=== PATIENT | male | born 1970 | race Caucasian/White ===

== ENCOUNTER 2022-01-30 19:31 | Emergency (ER) | payer MEDICARE, OTHER, SELFPAY ==
--- NOTE | 2022-01-30 19:26 | ECG_ITS ---
APPROVED REPORT Exam: Resting ECG HR:64 bpm ECG Measurements Heart Rate 64 AXES [place] 203 P 39 QRSd 116 QRS -7 QT 409 T 47 QTc 418 Conclusion SINUS RHYTHM INCOMPLETE RIGHT BUNDLE BRANCH BLOCK [90+ ms QRS DURATION, TERMINAL R IN V1/V2, 40+ ms S IN I/aVL/V4/V5/V6] POSSIBLE LATERAL MYOCARDIAL INFARCTION , OF INDETERMINATE AGE [30 ms Q WAVE IN I/aVL/V5/V6] ABNORMAL ECG UNCONFIRMED REPORT Electronically signed by : Flex Mckeon MD 01/31/2022 21:33:37
[2022-01-30 19:31] VITALS: BP 116/69; PULSE 67; RESP 16; TEMP 37.2; O2SAT 95; BMI 28.8
[2022-01-30 20:08] LABS: Acetaminophen < 10 ug/ml (10-30); Alanine Aminotransferase 47 U/L (12-78); Albumin Level 3.8 g/dl (3.5-5.0); Albumin/Globulin Ratio 1.4 (1.1-1.8); Alkaline Phosphatase 233 U/L (38-126); Anion Gap 8.1 mEq/L (5-15); Aspartate Amino Transferase 30 U/L (17-59); Bilirubin,Total 0.4 mg/dl (0.2-1.3); Blood Urea Nitrogen 11 mg/dl (9-20); Calcium 9.5 mg/dl (8.4-10.2); Carbon Dioxide 28 mmol/L (22.0-30.0); Chloride 105 mmol/L (98-107); Creatinine Clearance Estimated 75 mL/min (50-200); Estimated Glomerular Filt Rate 50 ml/min (>60); Ethyl Alcohol < 10 mg/dl (0-10); GFR (African American) 60 ML/MIN (>60); Globulin 2.7 g/dL (1.3-3.2); Glucose 108 mg/dl (74-100); Potassium 4.1 mmoL/L (3.5-5.1); Sodium 137 mmol/L (136-145); Total Protein,Serum 6.5 g/dl (6.3-8.2)
[2022-01-30 20:09] LABS: Microscopic, Urine URINE MICROSCOPIC (MICROSCOPIC)
[2022-01-30 20:13] LABS: Basophils % 0.6 % (0.1-2.0); Eosinophils # 0.1 K/mm3 (0.0-0.4); Eosinophils % 1.4 % (0.1-12.0); Hematocrit 37.2 % (42.0-52.0); Hemoglobin 11.8 g/dL (14.1-18.0); Lymphocytes # 1.4 K/mm3 (0.7-4.5); Lymphocytes % 18.4 % (10-50); Mean Corpuscular HGB Conc 31.8 g/dL (31.8-35.4); Mean Corpuscular Volume 100.7 fl (80-94); Mean Platelet Volume 8.1 fl (7.4-10.4); Monocytes # 0.6 K/mm3 (0.1-1.0); Monocytes % 7.6 % (1.7-9.3); Neutrophils # 5.6 K/mm3 (1.8-7.8); Platelet Count 278 K/mm3 (142-424); Red Cell Distribution Width 12.4 % (11.5-17.5); White Blood Count 7.8 K/mm3 (4.8-10.8)
[2022-01-30 20:35] LABS: Salicylate < 1.0 mg/dL (2.0-20.0)
[2022-01-30 20:37] LABS: Appearance,Urine CLEAR (Clear); Bilirubin,Urine Negative (Negative); Blood, Urine Negative (Negative); Color,Urine YELLOW (Yellow); Glucose,Urine (UA) Negative (Negative); Ketones,Urine Negative (Negative); Leukocyte Esterase,Urine TRACE (Negative); Nitrate,Urine Negative (Negative); PH,Urine 6.5 (5.0-8.5); Protein,Urine Negative (Negative); Specific Gravity, Urine <= 1.005 (1.005-1.030); Urobilinogen,Urine 0.2 EU/dl (0.2)
--- NOTE | 2022-01-30 20:41 | HMH.EDPSYCH ---
Discharge Plan Disposition Chief Complaint: Psychiatric Symptoms Referrals Follow up/Referrals: Provider,Referral, MD [Primary Care Provider] - See instructions Clinical Impressions Clinical Impression: Suicidal ideation, Depression Discharge ED Provider: Marquise Coronado Psych HPI General Chief Complaint: Psychiatric Symptoms Stated Complaint: suicidal ideation Time Seen by Provider: 01/30/22 20:41 Mode of Arrival: EMS Source of Information: Patient, EMS and Medical Record Limitations: No Limitations Description of Symptoms (Recalled from ER Triage Doc. by RN): pt states that he wants to and that his meds arent't working anymore History of Present Illness HPI Narrative: pt from retirement with depression which has increased over the last few weeks with concern about thoughts of self harm MD complaint: suicidal ideation and feels depressed Onset (ago): day(s) Duration: getting worse History of same: Yes Associated psychiatric symptoms: depression If self harm: admits thoughts of self harm Related Data Allergies Allergy/AdvReac Type Severity Reaction Status Date / Time No Known Allergies Allergy Verified 01/30/22 19:35 [facility] Disclaimer: The information contained in this section may have been updated after the patient was seen, as this information can be updated by other users. Social History Smoking Status: Current every day smoker alcohol intake: never current occupational status: unemployed Travel in the last 8 weeks: None ROS Obtained: Yes All systems reviewed & no additional complaints except as documented Physical Exam General General appearance: alert and in no apparent distress Head Head exam: normocephalic Eye Eye exam: Present PERRL and EOMI; Absent scleral icterus ENT ENT exam: Present mucous membranes moist Neck Neck exam: Present trachea midline Respiratory Respiratory exam: Absent respiratory distress Cardiovascular Cardiovascular exam: Present regular rate and systolic murmur Abdominal Exam Abdominal exam: Present soft Extremities Exam Extremities exam: Present full ROM Neurological Exam Neurological exam: Present alert, oriented X3, CN II-XII intact and normal gait; Absent motor sensory deficit Psychiatric Psychiatric exam: Present depressed and suicidal ideation Skin Skin exam: Absent rash Medical Decision Making Medical Records Medical records reviewed: Yes I reviewed the patient's medical records. [place] Inquiry Pt receiving controlled substance: No Vital Signs: 01/30/22 19:31 Temperature 98.9 F Temperature Source Oral Pulse Rate [Right] 67 Respiratory Rate 16 Blood Pressure [Right Arm] 116/69 Blood Pressure Mean [Right Arm] 84 02 Sat by Pulse Oximetry 95 Lab Data Lab results reviewed: Yes I reviewed the patient's lab results. Lab Results 01/30/22 19:51: WBC 7.8, RBC 3.70 L, Hgb 11.8 L, Hct 37.2 L, MCV 100.7 H, MCH 32.0 H, MCHC 31.8, RDW 12.4, Plt Count 278, MPV 8.1, Neut % (Auto) 72.0, Lymph % (Auto) 18.4, O'Brien % (Auto) 7.6, Eos % (Auto) 1.4, Baso % (Auto) 0.6, Neut # (Auto) 5.6, Lymph # (Auto) 1.4, O'Brien # (Auto) 0.6, Eos # (Auto) 0.1, Baso # (Auto) 0.0 01/30/22 19:51: Sodium 137, Potassium 4.1, Chloride 105, Carbon Dioxide 28, Anion Gap 8.1, BUN 11, Creatinine 1.50 H, Estimated Creat Clear 75, Estimated GFR 50 L, Est GFR ( Amer) 60, Glucose 108 H, Calcium 9.5, Total Bilirubin 0.4, AST 30, ALT 47, Alkaline Phosphatase 233 H, Total Protein 6.5, Albumin 3.8, Globulin 2.7, Albumin/Globulin Ratio 1.4, Salicylates < 1.0 L, Acetaminophen < 10 L 01/30/22 19:51: Plasma/Serum Alcohol < 10 01/30/22 19:52: Urine Color Yellow, Urine Appearance Clear, Urine pH 6.5, Ur Specific [place] <= 1.005, Urine Protein Negative, Urine Glucose (UA) Negative, Urine Ketones Negative, Urine Blood Negative, Urine Nitrate Negative, Urine Bilirubin Negative, Urine Urobilinogen 0.2, Ur Leukocyte Esterase Trace, Urine WBC 3-5, Ur Squamous Epith Cells Occasional, Urine Bacte
[2022-01-30 20:48] LABS: Amphetamine/Metha Screen,Urine Negative ng/ml (<1000)
[2022-01-30 20:49] LABS: Barbiturates Screen,Urine Negative ng/ml (<200); Benzodiazepines Screen,Urine Negative ng/ml (<200)
[2022-01-30 20:50] LABS: Cannabinoid Screen,Urine Negative ng/ml (<50)
[2022-01-30 20:51] LABS: Cocaine Screen,Urine Negative ng/ml (<300); Methadone Screen,Urine Negative ng/ml (<300)
[2022-01-30 20:52] LABS: Opiate Screen,Urine Negative ng/ml (<300)
[2022-01-30 20:53] LABS: Phencyclidine Screen,Urine Negative ng/ml (<25)
[2022-01-30 21:19] LABS: Bacteria,Urine 1+ /lpf; Squamous Epithelial Cell,Urine Occasional #/hpf (0-5)
--- NOTE | 2022-01-30 22:08 | PC.NURSE ---
Alan with [facility] is speaking with pt via Zoom @ this time
--- NOTE | 2022-01-30 22:17 | PC.NURSE ---
spoke with Alan at [facility] and pt has been accepted. Alan is sending 713 to dispatch to marilou cotto and then will send officer to transport
[2022-01-30 23:31] LABS: Coronavirus 19, PCR Not Detected (NotDetected); Influenza A, PCR Not Detected (NotDetected); Influenza B, PCR Not Detected (NotDetected)
--- NOTE | 2022-01-31 00:09 | PC.NURSE ---
Called [facility] and gave report to Bina MONTES DE OCA
[2022-01-31 00:14] VITALS: BP 119/78; PULSE 69; RESP 16; TEMP 37.2; O2SAT 99
== END 2022-01-31 00:17 ==
PROVIDERS: Emergency Medicine; Emergency Provider Emergency Medicine
DX: F32.A Depression, unspecified (principal); R45.851 Suicidal ideations; Z72.0 Tobacco use
CPT/HCPCS: 80053; 80305; 80329; 81001; 85025; 93005; 99283; C9803; U0003; U0005